=== PATIENT | male | born 1970 | race African-American/Black ===

== ENCOUNTER 2024-01-26 16:34 | Emergency (ER) | payer BC ==
[~2024-01-26] VITALS: Ht 182.9 cm; Wt 105.5 kg
[2024-01-26 16:51] VITALS: BP 147/95; PULSE 96; RESP 18; TEMP 97.2; O2SAT 99
--- NOTE | 2024-01-26 16:55 | NUR ---
PT TO BED 4
--- NOTE | 2024-01-26 17:07 | NUR ---
53YO M HX COPD AND ASTHMA PRESENTS FOR EVALUATION OF SOB X 2 WEEKS. PT STATES HE RAN OUT OF INHALER AND BREO SOLUTION. DENIES FEVER, CHILL, N, V, D, CP, URINARY SYMPTOMS, FLU SYMPTOMS. AOX4, AMBULATORY, VSS, HR EVEN/REGULAR, EXPIRATORY WHEEZES TO BILAT LUNG, SKIN INTACT/DRY/WARM, NAD, SAFETY MAINTAINED, CALL LIGHT IN REACH. HX: ASTHMA, COPD NKA
[2024-01-26 17:22] VITALS: PULSE 90; RESP 16; O2SAT 96
[2024-01-26] MEDS: ALBUTEROL SULFATE/IPRATROPIU 3 ML SOL IH ONE (17:22)
--- NOTE | 2024-01-26 17:23 | NUR ---
RT AT BEDSIDE FOR BREATHING TREATMENT.
[2024-01-26] MEDS: ALBUTEROL 0.083% 2.5 MG/3 ML NEBU INH ONE (17:29)
[2024-01-26] MEDS: IPRATROPIUM 0.02% 0.5 MG/2.5 ML NEBU INH ONE (17:29)
[2024-01-26 17:32] VITALS: BP 114/79; TEMP 97.2
[2024-01-26 17:33] VITALS: PULSE 98; RESP 14; O2SAT 98
[2024-01-26] MEDS ORDERED: ALBU0.0912 IH (17:37)
[2024-01-26] MEDS ORDERED: PRON INH (17:37)
[2024-01-26] MEDS ORDERED: PRED20TA5 PO (17:37)
[2024-01-26] MEDS ORDERED: FLUT1DSK4 IH (17:41)
--- NOTE | 2024-01-26 18:20 | NUR ---
Patient discharged with v/s stable. Written and verbal after care instructions given and explained. Patient alert, oriented and verbalized understanding of instructions. Ambulatory with steady gait. All questions addressed prior to discharge. ID band removed. Patient advised to follow up with PMD. Rx of PROVENTIL, ADVAIR, DELTASONE given. Opportunity to ask questions provided and answered.
--- NOTE | 2024-01-26 18:20 | NUR ---
Chart checked and completed. The patient's care was reviewed and supervised by ESDRAS BROOKS RN.
== END 2024-01-26 18:20 | disposition home or self-care (01) ==
LOC: MED 16:34
DX: J44.1 Chronic obstructive pulmonary disease with (acute) exacerbation (principal); Z98.890 Other specified postprocedural states; Z79.899 Other long term (current) drug therapy
CPT/HCPCS: 94640; 99283; J7613; J7644